=== PATIENT | female | born 1930 | race Caucasian/White ===

== ENCOUNTER 2019-04-05 10:12 | Day surgery (SDC) | payer MEDICARE, MEDICAID ==
[~2019-04-05] VITALS: Ht 149.9 cm; Wt 67.7 kg
[2019-04-05] VITALS (11 sets, daily range): BP systolic 115–162; BP diastolic 48–64
[2019-04-05] MEDS ORDERED: diphenhydrAMINE 25mg capsule PO PRN (10:35)
[2019-04-05] MEDS ORDERED: normal saline 1,000 ML IV SCH (10:35)
[2019-04-05] MEDS ORDERED: LORazepam 0.5 MG tablet PO PRN (10:35)
[2019-04-05] MEDS ORDERED: nitroGLYCERIN 0.4mg SUBLingual tab SL PRN (10:35)
[2019-04-05 11:02] LABS: BASOPHILS # (AUTO) 0.1 X10'3 (0-0.2); BASOPHILS % (AUTO) 0.7 % (0-1); EOSINOPHILS # (AUTO) 0.2 X10'3 (0-0.9); EOSINOPHILS % (AUTO) 1.7 % (0-6); HEMATOCRIT 41.7 % (35.0-45.0); HEMOGLOBIN 14.1 g/dl (12.0-16.0); LYMPHOCYTES % (AUTO) 34.8 % (21-51); MEAN CORPUSCULAR HEMOGLOBIN 30.4 PG (27.0-31.0); MEAN CORPUSCULAR HGB CONC 33.8 g/dL (33.0-36.5); MEAN PLATELET VOLUME 7.3 FL (7.4-10.4); MONOCYTES # (AUTO) 0.6 X10'3 (0-0.9); MONOCYTES % (AUTO) 6.5 % (2-12); NEUTROPHILS # (AUTO) 4.9 X10'3 (1.8-7.7); NEUTROPHILS % (AUTO) 56.3 % (42-75); PLATELET COUNT 222 X10'3 (140-440); RED BLOOD COUNT 4.64 X10'6 (4.20-5.60); RED CELL DISTRIBUTION WIDTH 14.3 % (11.5-14.5); WHITE BLOOD COUNT 8.7 X10'3 (4.5-11.0)
[2019-04-05 11:05] LABS: ALBUMIN 3.7 G/DL (3.4-5.0); ANION GAP 7 (8-16); BLOOD UREA NITROGEN 10 MG/DL (7-18); BUN/CREATININE RATIO 14.9 (6.6-38.0); CALCIUM 9.3 MG/DL (8.5-10.1); CHLORIDE 107 MMOL/L (99-107); CREATININE 0.67 MG/DL (0.40-0.90); GLUCOSE 95 MG/DL (70-104); POTASSIUM 4.2 MMOL/L (3.5-5.1); SODIUM 142 MMOL/L (135-145); TOTAL CARBON DIOXIDE 28.1 MMOL/L (24-32); eGFR 83 ML/MIN
[2019-04-05 11:09] LABS: PARTIAL THROMBOPLASTIN TIME 21 SECONDS (22-32)
[2019-04-05] MEDS ORDERED: ELUX75TA PO (11:18)
[2019-04-05] MEDS ORDERED: LIDOcaine 1% (10mg/ml)w/preservative injection 20ml MDV ONE (11:57)
[2019-04-05] MEDS ORDERED: iohexol 350 MG/ML 50ML vial IV ONE (11:57)
[2019-04-05] MEDS ORDERED: iohexol 350MG/ML 100ml bottle IV ONE (11:58)
[2019-04-05] MEDS ORDERED: midazolam 2 mg/2 ml injection ONE (12:09)
[2019-04-05] MEDS ORDERED: fentaNYL/PF 50MCG/1 ML 2ML syringe ONE (12:09)
[2019-04-05] MEDS ORDERED: proCHLORperazine 10 MG/2 ml inj IV PRN (13:35)
[2019-04-05] MEDS ORDERED: OXAZEpam 15mg capsule PO PRN (13:35)
[2019-04-05] MEDS ORDERED: HYDROcodone/acetaminophen 5mg/325mg tablet PO PRN (13:35)
[2019-04-05] MEDS ORDERED: ondansetron/PF 4mg/2ml inj IV PRN (13:35)
[2019-04-05] MEDS ORDERED: HYDROcodone/acetaminophen 10/325mg tab PO PRN (13:35)
[2019-04-05] MEDS ORDERED: normal saline 1000ml 1,000 ML IV SCH (13:35)
== END 2019-04-05 18:00 | disposition home or self-care (01) ==
LOC: SSTAY O 10:12
PROVIDERS: ATTEND Internal Medicine Cardiovascular Disease
DX: R94.39 Abnormal result of other cardiovascular function study (principal); I25.10 Atherosclerotic heart disease of native coronary artery without angina pectoris; E78.1 Pure hyperglyceridemia; Z98.890 Other specified postprocedural states; Z79.01 Long term (current) use of anticoagulants; Z79.899 Other long term (current) drug therapy
CPT/HCPCS: 36415; 71046; 80048; 85025; 85610; 85730; 93005; 93458; 99152; 99153; C1769; J1644; J2001; J2250; J3010; J7030; Q0163; Q9967; A4620; A6258; C1760